=== PATIENT | female | born 1990 | race Caucasian/White ===

== ENCOUNTER 2021-03-22 18:33 | Emergency (ER) | payer OTHER ==
[2021-03-22] MEDS ORDERED: TRAMADOL HCL50 MG PO ×2 (20:59)
== END 2021-03-22 21:22 | disposition home or self-care (01) ==
LOC: FER 18:33
DX: K04.7 Periapical abscess without sinus (principal); K03.81 Cracked tooth; F17.290 Nicotine dependence, other tobacco product, uncomplicated; Z88.0 Allergy status to penicillin
CPT/HCPCS: J1885; Q0163